=== PATIENT | male | born 1935 | race Caucasian/White ===

== ENCOUNTER 2018-06-09 05:25 | Day surgery (SDC) | payer OTHER ==
[2018-06-02 10:23] LABS: BASOPHILS % (AUTO) 0.4 % (0-1); EOSINOPHILS # (AUTO) 0.2 X10'3 (0-0.9); EOSINOPHILS % (AUTO) 3.2 % (0-6); HEMATOCRIT 43.3 % (42.0-52.0); HEMOGLOBIN 14.7 g/dl (14.0-17.9); LYMPHOCYTES # (AUTO) 1.1 X10'3 (1.1-4.8); MEAN CORPUSCULAR HEMOGLOBIN 31.8 PG (27.0-31.0); MEAN CORPUSCULAR VOLUME 93.5 FL (78-98); MEAN PLATELET VOLUME 8.9 FL (7.4-10.4); MONOCYTES # (AUTO) 0.8 X10'3 (0-0.9); MONOCYTES % (AUTO) 12.3 % (2-12); NEUTROPHILS # (AUTO) 4.2 X10'3 (1.8-7.7); NEUTROPHILS % (AUTO) 67.1 % (42-75); PLATELET COUNT 155 X10'3 (140-440); RED BLOOD COUNT 4.63 X10'6 (4.70-6.10); RED CELL DISTRIBUTION WIDTH 13.1 % (11.5-14.5); WHITE BLOOD COUNT 6.3 X10'3 (4.5-11.0)
[2018-06-02 10:34] LABS: PARTIAL THROMBOPLASTIN TIME 26 SECONDS (22-32); PROTHROMBIN TIME 10.2 SECONDS (9.0-12.0)
[2018-06-02 10:40] LABS: ALANINE AMINOTRANSFERASE 33 U/L (12-78); ALBUMIN 3.7 G/DL (3.4-5.0); ALBUMIN/GLOBULIN RATIO 0.9 (1.1-1.5); ALKALINE PHOSPHATASE 65 IU/L (46-116); ANION GAP 8 (8-16); ASPARTATE AMINO TRANSFERASE 23 U/L (10-37); BILIRUBIN,TOTAL 0.5 MG/DL (0.1-1.0); BLOOD UREA NITROGEN 20 MG/DL (7-18); BUN/CREATININE RATIO 22.2 (5.4-32.0); CALCIUM 8.9 MG/DL (8.5-10.1); CHLORIDE 106 MMOL/L (99-107); GLUCOSE 108 MG/DL (70-104); POTASSIUM 3.9 MMOL/L (3.5-5.1); SODIUM 140 MMOL/L (135-145); TOTAL CARBON DIOXIDE 26.3 MMOL/L (24-32); TOTAL PROTEIN 7.6 G/DL (6.4-8.2); eGFR 81 ML/MIN
[2018-06-09] VITALS (11 sets, daily range): BP systolic 162–189; BP diastolic 54–80
[~2018-06-09 05:25] MED LIST: ASPI-1009 PO; GLIM1TAB46 PO; MELO-100 PO; PANT-47 PO; ROSU20TA PO; VITA400C19 PO
[2018-06-09] MEDS ORDERED: diphenhydrAMINE 25mg capsule PO PRN (05:40)
[2018-06-09] MEDS ORDERED: LORazepam 0.5 MG tablet PO PRN (05:40)
[2018-06-09] MEDS ORDERED: normal saline 1000ml 1,000 ML IV SCH (05:40)
[2018-06-09] MEDS ORDERED: DOCU250C34 PO (06:22)
[2018-06-09] MEDS ORDERED: ROSU20TA PO (06:22)
[2018-06-09] MEDS ORDERED: GLIM1TAB46 PO (06:22)
[2018-06-09] MEDS ORDERED: iohexol 350 MG/ML 50ML vial IV ONE (08:39)
[2018-06-09] MEDS ORDERED: iohexol 350MG/ML 100ml bottle IV ONE (08:39)
[2018-06-09] MEDS ORDERED: fentaNYL/PF 50MCG/1 ML 2ML syringe ONE (08:39)
[2018-06-09] MEDS ORDERED: midazolam 2 mg/2 ml injection ONE (08:39)
[2018-06-09] MEDS ORDERED: LIDOcaine 1% 30ml preserv. free vial ONE (09:02)
[2018-06-09] MEDS ORDERED: nitroGLYCERIN-Tridil 50MG/D5W 250 ML IV ONE (09:09)
[2018-06-09] MEDS ORDERED: HYDROcodone/acetaminophen 10/325mg tab PO PRN (11:10)
[2018-06-09] MEDS ORDERED: HYDROcodone/acetaminophen 5mg/325mg tablet PO PRN (11:10)
[2018-06-09] MEDS ORDERED: ondansetron/PF 4mg/2ml inj IV PRN (11:10)
[2018-06-09] MEDS ORDERED: OXAZEpam 15mg capsule PO PRN (11:10)
[2018-06-09] MEDS ORDERED: proCHLORperazine 10 MG/2 ml inj IV PRN (11:10)
== END 2018-06-09 16:00 | disposition home or self-care (01) ==
LOC: SSTAY O 05:25
PROVIDERS: ATTEND Internal Medicine Cardiovascular Disease
DX: I25.10 Atherosclerotic heart disease of native coronary artery without angina pectoris (principal); I10 Essential (primary) hypertension; E78.5 Hyperlipidemia, unspecified; N40.0 Benign prostatic hyperplasia without lower urinary tract symptoms; M19.90 Unspecified osteoarthritis, unspecified site; E11.9 Type 2 diabetes mellitus without complications; F41.9 Anxiety disorder, unspecified; I25.2 Old myocardial infarction; Z79.82 Long term (current) use of aspirin; Z87.442 Personal history of urinary calculi; Z87.891 Personal history of nicotine dependence; Z95.1 Presence of aortocoronary bypass graft; Z86.73 Personal history of transient ischemic attack (TIA), and cerebral infarction without residual deficits; Z88.8 Allergy status to other drugs, medicaments and biological substances; Z79.899 Other long term (current) drug therapy; Z98.890 Other specified postprocedural states
CPT/HCPCS: 36415; 71046; 80053; 82948; 85025; 85610; 85730; 93459; 99152; 99153; A6257; C1760; C1769; J1644; J2250; J3010; J3490; J7030; Q0163; Q9967; A4620

== ENCOUNTER 2019-08-30 08:45 | Emergency (ER) | payer OTHER ==
[~2019-08-30] VITALS: Ht 167.6 cm; Wt 68.7 kg
[~2019-08-30 08:45] MED LIST changes: +DOCU250C34 PO; +GLIM1TAB3 PO; -GLIM1TAB46 PO; -MELO-100 PO; -PANT-47 PO; -ROSU20TA PO; +ROSU20TA2 PO; -VITA400C19 PO
[2019-08-30] MEDS ORDERED: CIPR10DR LEFT EAR (10:00)
[2019-08-30 10:09] VITALS: BP 143/64
== END 2019-08-30 10:10 | disposition home or self-care (01) ==
LOC: ER 08:46
DX: H72.92 Unspecified perforation of tympanic membrane, left ear (principal); I25.10 Atherosclerotic heart disease of native coronary artery without angina pectoris; E78.00 Pure hypercholesterolemia, unspecified; I10 Essential (primary) hypertension; N40.0 Benign prostatic hyperplasia without lower urinary tract symptoms; Z86.73 Personal history of transient ischemic attack (TIA), and cerebral infarction without residual deficits; Z87.442 Personal history of urinary calculi; Z88.8 Allergy status to other drugs, medicaments and biological substances; Z79.82 Long term (current) use of aspirin; Z79.2 Long term (current) use of antibiotics; Z79.899 Other long term (current) drug therapy
CPT/HCPCS: 99283

== ENCOUNTER 2020-10-18 11:28 | Emergency (ER) | payer OTHER ==
[~2020-10-18] VITALS: Ht 167.6 cm; Wt 53.0 kg
[~2020-10-18 11:28] MED LIST changes: +AMA1T PO; -GLIM1TAB3 PO; +LIDOcaine 1% W/epiNEPHrine 1:100,000 20ml vial ONE
[2020-10-18 12:02] VITALS: BP 127/57
[2020-10-18] MEDS ORDERED: bacitracin 15gm ointment TP ONE (12:40)
[2020-10-18] MEDS ORDERED: LIDOcaine 1% W/epiNEPHrine 1:200,000 10ml vial IJ ONE (12:40)
[2020-10-18] MEDS ORDERED: TETanus/Pertussis (Acell)/Diphther VAC/PF (Tdap-Adult) 0.5ml syringe IMVAC ONE (12:40)
== END 2020-10-18 13:15 | disposition home or self-care (01) ==
LOC: ER 11:29
DX: S60.352A Superficial foreign body of left thumb, initial encounter (principal); I25.10 Atherosclerotic heart disease of native coronary artery without angina pectoris; E78.00 Pure hypercholesterolemia, unspecified; I10 Essential (primary) hypertension; Z86.73 Personal history of transient ischemic attack (TIA), and cerebral infarction without residual deficits; Z95.1 Presence of aortocoronary bypass graft; Z87.442 Personal history of urinary calculi; Z88.8 Allergy status to other drugs, medicaments and biological substances; Z79.82 Long term (current) use of aspirin; Z79.899 Other long term (current) drug therapy; W22.8XXA Striking against or struck by other objects, initial encounter; Y93.89 Activity, other specified; Y92.89 Other specified places as the place of occurrence of the external cause; Y99.9 Unspecified external cause status
CPT/HCPCS: 10120; 99285

== ENCOUNTER 2021-10-19 11:29 | Emergency (ER) | payer OTHER ==
[~2021-10-19] VITALS: Ht 170.2 cm; Wt 63.0 kg
[~2021-10-19 11:29] MED LIST changes: -LIDOcaine 1% W/epiNEPHrine 1:100,000 20ml vial ONE
[2021-10-19 11:41] VITALS: BP 153/51
[2021-10-19] MEDS ORDERED: CIPR10DR LEFT EAR (12:01)
== END 2021-10-19 12:25 | disposition home or self-care (01) ==
LOC: ER 11:29
DX: H60.92 Unspecified otitis externa, left ear (principal); H92.02 Otalgia, left ear; I25.10 Atherosclerotic heart disease of native coronary artery without angina pectoris; E78.00 Pure hypercholesterolemia, unspecified; I10 Essential (primary) hypertension; Z86.73 Personal history of transient ischemic attack (TIA), and cerebral infarction without residual deficits; Z87.442 Personal history of urinary calculi; Z98.890 Other specified postprocedural states; Z88.8 Allergy status to other drugs, medicaments and biological substances; Z79.82 Long term (current) use of aspirin; Z79.2 Long term (current) use of antibiotics; Z79.899 Other long term (current) drug therapy
CPT/HCPCS: 99283

== ENCOUNTER 2023-05-08 13:29 | Emergency (ER) | payer OTHER ==
[~2023-05-08] VITALS: Ht 170.2 cm; Wt 68.2 kg
[2023-05-08 13:42] VITALS: BP 159/71
[2023-05-08] MEDS ORDERED: loperamide 2mg capsule PO ONE (13:50)
[2023-05-08] MEDS ORDERED: POLY17PO10 PO (14:19)
== END 2023-05-08 14:29 | disposition home or self-care (01) ==
LOC: ER 13:29
DX: R19.7 Diarrhea, unspecified (principal); E78.00 Pure hypercholesterolemia, unspecified; I10 Essential (primary) hypertension; E11.9 Type 2 diabetes mellitus without complications; Z88.8 Allergy status to other drugs, medicaments and biological substances
CPT/HCPCS: 99282

== ENCOUNTER 2023-05-10 14:40 | Emergency (ER) | payer OTHER ==
[~2023-05-10 14:40] MED LIST changes: +POLY17PO10 PO
== END 2023-05-10 15:28 | disposition left against medical advice (07) ==
LOC: ER 14:42
DX: G47.00 Insomnia, unspecified (principal); Z53.21 Procedure and treatment not carried out due to patient leaving prior to being seen by health care provider

== ENCOUNTER 2023-08-25 08:21 | Emergency (ER) | payer OTHER ==
[~2023-08-25] VITALS: Ht 175.3 cm; Wt 70.0 kg
[~2023-08-25 08:21] MED LIST changes: -POLY17PO10 PO
[2023-08-25 08:28] VITALS: BP 129/65; PULSE 67; RESP 18; TEMP 97.6; O2SAT 98
[2023-08-25] MEDS ORDERED: LEVO250T74 PO (09:19)
[2023-08-25] MEDS ORDERED: COROTSUS OT (09:19)
== END 2023-08-25 09:33 | disposition home or self-care (01) ==
LOC: ER 08:21
DX: H66.42 Suppurative otitis media, unspecified, left ear (principal); I11.0 Hypertensive heart disease with heart failure; E78.00 Pure hypercholesterolemia, unspecified; E11.9 Type 2 diabetes mellitus without complications; Z87.442 Personal history of urinary calculi
CPT/HCPCS: 99283

== ENCOUNTER → 2023-09-04 | Emergency (ER) | payer OTHER ==
[~2023-09-04] VITALS: Ht 170.2 cm; Wt 56.0 kg
[~2023-09-04] MED LIST changes: +COROTSUS OT; +LACT10SO3 PO; +LEVO250T74 PO
[2023-09-04 08:37] VITALS: TEMP 98.2
[2023-09-04 09:13] VITALS: BP 166/58; PULSE 53; RESP 16; O2SAT 96
== END | disposition home or self-care (01) ==
LOC: ER 08:24
DX: K59.00 Constipation, unspecified (principal); E78.00 Pure hypercholesterolemia, unspecified; I10 Essential (primary) hypertension; E11.9 Type 2 diabetes mellitus without complications; Z88.8 Allergy status to other drugs, medicaments and biological substances; Z79.2 Long term (current) use of antibiotics; Z79.1 Long term (current) use of non-steroidal anti-inflammatories (NSAID); Z79.899 Other long term (current) drug therapy
CPT/HCPCS: 99283

== ENCOUNTER 2024-02-13 06:55 | Emergency (ER) | payer OTHER ==
[~2024-02-13] VITALS: Ht 170.2 cm; Wt 62.2 kg
[2024-02-13 06:55] VITALS: TEMP 98
[~2024-02-13 06:55] MED LIST changes: -LEVO250T74 PO
[2024-02-13] MEDS: LIDOcaine 1% 30ml preserv. free vial IJ ONE (08:25)
[2024-02-13] MEDS: naproxen 500mg tablet PO ONE (08:32)
[2024-02-13 10:14] VITALS: BP 143/59; PULSE 71; RESP 14; O2SAT 95
[2024-02-13] MEDS ORDERED: CYCL-1 PO (10:16)
[2024-02-13] MEDS ORDERED: MELO-102 PO (10:16)
== END 2024-02-13 10:30 | disposition home or self-care (01) ==
LOC: ER 06:55
DX: M50.30 Other cervical disc degeneration, unspecified cervical region (principal); M62.838 Other muscle spasm; Z88.8 Allergy status to other drugs, medicaments and biological substances; I10 Essential (primary) hypertension; E11.9 Type 2 diabetes mellitus without complications; Z86.73 Personal history of transient ischemic attack (TIA), and cerebral infarction without residual deficits; E78.00 Pure hypercholesterolemia, unspecified
CPT/HCPCS: 20552; 72050; 99284

== ENCOUNTER 2025-06-30 10:18 | Emergency (ER) | payer OTHER ==
[~2025-06-30] VITALS: Ht 167.6 cm; Wt 61.4 kg
[~2025-06-30 10:18] MED LIST changes: -AMA1T PO; +CYCL-1 PO; +GLIM1TAB57 PO; +LACT-373 PO; -LACT10SO3 PO; +MELO-102 PO
[2025-06-30 11:04] LABS: MEAN PLATELET VOLUME 8.9 FL (7.4-10.4); RED CELL DISTRIBUTION WIDTH 14.7 % (11.5-14.5)
[2025-06-30 11:08] LABS: LEUKOCYTE ESTERASE ,URINE NEGATIVE (Neg); NITRITES, URINE NEGATIVE (Neg); OCCULT BLOOD,URINE SMALL (Neg)
[2025-06-30 11:15] LABS: UA COLLECTION TYPE CLN CATCH MIDSTREAM
[2025-06-30 11:17] LABS: CREATININE 0.97 MG/DL (0.60-1.10); TOTAL CARBON DIOXIDE 26.4 MMOL/L (24-32); eCRCL 45 ML/MIN; eGFR 73 ML/MIN
[2025-06-30 11:43] LABS: HYALINE CASTS 0-3 /LPF (NEGATIVE)
[2025-06-30 11:44] LABS: MUCUS STRANDS FEW /LPF (Neg); SQUAMOUS EPITHELIAL CELL,UR MODERATE /LPF (FEW)
--- NOTE | 2025-06-30 12:06 | Physician Documentation ---
History of Present Illness ~ Chief Complaint: Hypoglycemia Stated Complaint: DIABETIC COMPLICATIONS Time Seen by MD: 12:06 Primary Medical Doctor: Dr. Anuja Crisostomo Mode of Arrival: EMS HPI 89-year-old type 2 diabetic his found him to be hypoglycemic this morning. EMS was called, and found him to have a glucose less than 40. He was given glucose by EMS in route. On exam, he was found to be alert and oriented. He had in his notes no recent medication changes. He is on both metformin and glyburide. 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 His feels confident that he is up-to-date on tetanus. Medication Reconciliation Allergies: Coded Allergies: Guxvxil-ROG-NfC Reductase Inhibitor (Verified Allergy, Unknown, 07/11/24) Scheduled Aspirin (Aspirin), 81 MG PO DAILY, (Reported) Cyclobenzaprine* (Cyclobenzaprine*), 0.5 TAB PO HS Docusate Sodium (Col-Rite), 250 MG PO DAILY, (Reported) Glimepiride* (Amaryl*), 2 MG PO DAILY, (Reported) Lactulose (Lactulose), 30 ML PO BID Meloxicam (Meloxicam), 1 TAB PO DAILY Neomy Sulf/Polymyx B Sulf/Hc (Cortisporin Otic Suspension), 4 DROP OT TID Rosuvastatin Calcium* (Crestor*), 1 TAB PO DAILY, (Reported) Past Medical History Past Medical History: CVA/TIA/Stroke, Coronary Artery Disease, High Cholesterol, Hypertension, BPH, Kidney Stones, Diabetes Past Surgical History: coronary bypass surgery Drug Use: none Lives with: Spouse Lives In: Home Occupation: retired Review of Systems ROS As stated above in the HPI, otherwise all systems are reviewed and negative. Physical Exam Vital Signs: Temperature: 98.5, Source: Oral, Heart Rate: 57, Respiratory Rate: 16, BP: 149/67, Pulse Oximetry: 99, Weight: 61.360 Oxygen Flow Rate: 0 Physical Exam General: Alert, no apparent distress. HEENT: PERRL, EOMI, no injection, moist mucous membranes. Neck: Full range of motion. Respiratory: Lungs clear, no respiratory distress. Chest: No accessory muscle use. Cardiovascular: Regular rate and rhythm, no murmurs. Gastrointestinal: Soft, nontender, nondistended. Bowels sounds present. Extremities: Normal range of motion, no deformity. Neurologic: Oriented x4. Psychiatric: Normal mood and affect. Skin: Normal color, warm and dry. No edema, no ecchymosis. skin tear right lateral arm Progress Results/Orders Results/Orders Orders - VU JONES FILM DEVELOPING MACHINE OPERATOR * Iv Access / Saline Lock * (06/30/25 10:34) Accucheck (06/30/25 10:34) Accucheck (06/30/25 11:04) Accucheck (06/30/25 11:34) Accucheck (06/30/25 12:04) Observation Status Start (06/30/25 10:34) Hs Troponin I W Calculations (06/30/25 12:34) Hs Troponin I W Calculations (06/30/25 13:34) Cult Urine + [place] [address] (06/30/25 11:47) * Miscellaneous Nursing Orders (06/30/25 12:06) Dressing Orders (06/30/25 13:01) Wound Care Orders (06/30/25 13:01) Completed Orders - VU JONES FILM DEVELOPING MACHINE OPERATOR Cbc/Diff (06/30/25 10:34) Lipase (06/30/25 10:34) MG (06/30/25 10:34) BMP (06/30/25 10:34) Hs Troponin I W Calculations (06/30/25 10:34) Ua W/Microscopic, Cult If Ind (06/30/25 10:44) Bacitracin Ointment (Bacitracin Ointment (06/30/25 13:05) Vital Signs 06/30/25 06/30/25 06/30/25 10:21 10:40 10:40 Temp 98.5 Pulse 64 57 Resp 16 16 14 B/P (MAP) 154/59 149/67 (94) Pulse Ox 97 99 O2 Flow Rate 0 0 Laboratory Tests Test 06/30/25 10:44 06/30/25 10:50 06/30/25 11:00 06/30/25 12:03 Urine Specimen Description Cln catch midstream Urine Color Yellow Urine Clarity Slightly cloudy Urine pH 6.0 Urine Specific [place] 1.025 Urine Protein 100 H Urine Glucose (UA) 100 H Urine Ketones Negative Urine Occult Blood Small Urine Nitrite Negative Urine Bilirubin Negative Urine Urobilinogen 1.0 Urine Leukocyte Esterase Negative Urine RBC 0-2 Urine WBC 5-10 H Urine Squamous Epithelial Cells Moderate Urine Bacteria Few Urine Hyaline Casts 0-3 Urine Fine Granular Casts 3-5 Urine Coarse Granular Casts 5-10 Urine Mucus Few Urine Culture Indicated Indicated Volume Urine Centrifuged 10 ml Urine Comment White Blood Count 7.4 Red Blood Count 3.81 L Hemoglobin 11.9 L Hematocrit 35.3 L Mean Corpuscular Volume 92.8 Mean Corpuscular Hemoglobin 31.4 H Mean Corpuscular Hemoglobin Concent 33.8 Red Cell Distribution Width 14.7 H Platelet Count 150 Mean Platelet Volume 8.9 Neutrophils (%) (Auto) 82.0 H Lymphocytes (%) (Auto) 7.8 L Monocytes (%) (Auto) 9.3 Eosinophils (%) (Auto) 0.2 Basophils (%) (Auto) 0.7 Neutrophils # (Auto) 6.1 Lymphocytes # (Auto) 0.6 L Monocytes # (Auto) 0.7 Eosinophils # (Auto) 0.0 Basophils # (Auto) 0.1 CBC Comment Sodium Level 143 Potassium Level 3.4 L Chloride Level 107 Carbon Dioxide Level 26.4 Anion Gap 10 Blood Urea Nitrogen 11 Creatinine 0.97 Estimated GFR/1.73 m2 73 BUN/Creatinine Ratio 11.3 Glucose Level 135 H Calcium Level 8.7 Magnesium Level 1.8 Troponin I High Sensitivity 50 Albumin 3.4 Lipase 15 L Chemistry Comments Glucometer 129 H 75 Test 06/30/25 12:42 Microbiology Date/Time Source Procedure Growth Status 06/30/25 11:47 Urine Clean Catch Midstream Urine Culture - Preliminary Culture received. Resulted Medical Decision Making Additional Comment This is a well-appearing 89-year-old male who was found to be alert and oriented without concerns other than a skin tear to the right arm. On discussion with he and his , he notes that he has been certainly with the acid reflux lately in his not been eating quite as well. He is not on any insulin. The only medications he is on metformin and glyburide. He does not see his primary care for the another couple of months, but they feel that they can get him in soon. He was encouraged to stop the glyburide as this can be notorious for causing hypoglycemia, continue only the metformin. Discussed further diabetic management with primary care at next appointment. Return if worse. Eat regular meals. Departure Time of Disposition: 13:02 Disposition: 01 HOME / SELF CARE / HOMELESS Impression: Primary Impression: Hypoglycemia Condition: Stable Discharge Instructions: Hypoglycemia, [id number] Additional Instructions: The glimepiride. Okay to resume the metformin tonight. Eat small frequent meals. Follow up with the your primary care provider within a week, or return if worse. For the wounds to the right arm. Keep it clean dry and covered, change daily with a nonstick bandage and apply Neosporin or similar Referrals: NO PRIMARY CARE PROVIDER (PCP) Education Educated: Patient, Family Educated regarding: diagnosis, treatment, prognosis, need for follow up Signature Scribe Signature: x Attestation: The note accurately reflects work and decisions made by me.Vu Gan NP 06/30/25 13:16 VU JONES NP Jun 30, 2025 12:06
[2025-06-30] MEDS: bacitracin 15gm ointment TP ONE (13:23)
[2025-06-30 13:30] VITALS: BP 149/67; PULSE 57; RESP 16; TEMP 98.5; O2SAT 99
== END 2025-06-30 13:32 | disposition home or self-care (01) ==
LOC: ER 10:19
DX: E11.649 Type 2 diabetes mellitus with hypoglycemia without coma (principal); E78.00 Pure hypercholesterolemia, unspecified; I10 Essential (primary) hypertension; I25.10 Atherosclerotic heart disease of native coronary artery without angina pectoris; Z86.73 Personal history of transient ischemic attack (TIA), and cerebral infarction without residual deficits; Z88.8 Allergy status to other drugs, medicaments and biological substances; Z95.1 Presence of aortocoronary bypass graft; Z79.82 Long term (current) use of aspirin; Z79.899 Other long term (current) drug therapy
CPT/HCPCS: 36415; 80048; 81001; 82948; 83690; 83735; 84484; 85025; 87077; 87088; 87186; 99284; A6258